=== PATIENT | male | born 1970 | race African-American/Black ===

== ENCOUNTER 2020-01-03 08:13 | Emergency (ER) | payer OTHER ==
[~2020-01-03] VITALS: Ht 185.4 cm; Wt 114.8 kg
[2020-01-03] MEDS ORDERED: NORCO 5-325 TA1 EAC2 PO (11:05)
[2020-01-03 11:51] VITALS: BP 172/104
== END 2020-01-03 11:55 | disposition home or self-care (01) ==
LOC: ER 08:13
DX: S42.301A Unspecified fracture of shaft of humerus, right arm, initial encounter for closed fracture (principal); I10 Essential (primary) hypertension; W10.8XXA Fall (on) (from) other stairs and steps, initial encounter; Y93.89 Activity, other specified; Y92.89 Other specified places as the place of occurrence of the external cause; Y99.8 Other external cause status